=== PATIENT | male | born 1935 | race Caucasian/White ===

== ENCOUNTER → 2018-02-28 | Outpatient (CLI) | payer MEDICARE ==
[~2018-02-28] MED LIST: AMBIEN 5 MG TABL5 M1 PO; ASPIR 8181 M1 PO; CIPRO500 M1 PO; FLAGYL500 M1 PO; HYTRIN 5 M5 MG/1 CAP PO; MAGOX 400400 MG PO; NEXIUM 40 MG CA40 M1 PO; ONDANSETRON HCL4 M2 PO; PROBIOTIC1 EAC1 PO; TOBRAMYCIN-DEXAM5 ML OP; TRILIPIX135 MG PO; ULTRAM 50MG TAB50 MG PO; VALTREX1000 MG PO
== END ==
LOC: M.RAD 13:19
DX: M19.071 Primary osteoarthritis, right ankle and foot (principal)

== ENCOUNTER → 2018-03-06 | Outpatient (CLI) | payer MEDICARE | LOC: M.MRI 07:09 | DX: M19.071 Primary osteoarthritis, right ankle and foot (principal) ==